=== PATIENT | female | born 1985 | race Hispanic/Latino ===

== ENCOUNTER 2022-11-11 23:14 | Emergency (ER) | payer MEDICAID, OTHER ==
[~2022-11-11] VITALS: Ht 157.5 cm; Wt 88.5 kg
[2022-11-11 23:40] LABS: BILIRUBIN,URINE NEGATIVE (NEGATIVE); COLOR,URINE LIGHT-YELLOW (YELLOW); GLUCOSE, URINE (UA) NEGATIVE (NEGATIVE); KETONES,URINE NEGATIVE (NEGATIVE); LEUKOCYTE ESTERASE ,URINE 75 Leu/uL (NEGATIVE); NITRATE,URINE NEGATIVE (NEGATIVE); PH,URINE 5.5 (5.0-8.0); PROTEIN,URINE NEGATIVE (NEGATIVE); UROBILINOGEN,URINE 0.2 mg/dL (0.2-1.0)
[2022-11-11 23:41] LABS: ADD UA MICROSCOPIC YES; APPEARANCE,URINE SLIGHTLY CLOUDY (CLEAR)
[2022-11-11 23:43] LABS: BACTERIA,URINE RARE /HPF (None Seen); MUCUS,URINE RARE LPF (None Seen); SQUAMOUS EPITHELIAL CELL,UR FEW /HPF (0-2)
[2022-11-12] MEDS ORDERED: CEFTRIAXONE 1G VIAL IM ONE (03:30)
[2022-11-12] MEDS ORDERED: DOXY-469 PO (03:30)
[2022-11-12] MEDS ORDERED: CEFTRIAXONE 1G VIAL IVPB ONE (03:30)
[2022-11-12 03:46] VITALS: BP 122/79; PULSE 92; RESP 18; O2SAT 99
== END 2022-11-12 03:47 | disposition home or self-care (01) ==
LOC: EDH 23:14
DX: N39.0 Urinary tract infection, site not specified (principal); N89.8 Other specified noninflammatory disorders of vagina
CPT/HCPCS: 99284; 87210; 87077; 87088; 87186; 87797 ×2; 81001; 81025; 96372; 87486 ×2; J0696

== ENCOUNTER 2023-04-05 09:03 | Emergency (ER) | payer OTHER ==
[~2023-04-05] VITALS: Ht 157.5 cm; Wt 81.6 kg
[~2023-04-05 09:03] MED LIST: DOXY-469 PO
[2023-04-05] MEDS: LACTATED RINGERS 1000ML 1,000 ML IV ONE (09:26)
[2023-04-05] MEDS: PANTOPRAZOLE 40 MG/VIAL IVP ONE (09:27)
[2023-04-05] MEDS: ONDANSETRON 4MG INJ IVP ONE ×2 (09:27→10:33)
[2023-04-05 09:28] LABS: BASOPHILS # (AUTO) 0.01 K/uL (0.00-0.20); BASOPHILS % (AUTO) 0.1 % (0.0-5.0); EOSINOPHILS # (AUTO) 0.03 K/uL (0.00-0.70); EOSINOPHILS % (AUTO) 0.3 % (0.0-8.0); IMMATURE GRANULOCYTE ABSOLUTE 0.04 K/uL (0-1); LYMPHOCYTES # (AUTO) 1.3 K/uL (1.0-4.8); LYMPHOCYTES % (AUTO) 12.1 % (21.0-51.0); MEAN CORPUSCULAR HGB CONC 32.3 g/dL (32.0-36.0); MEAN CORPUSCULAR VOLUME 83.5 fL (79-99); MONOCYTES # (AUTO) 0.4 K/uL (0.1-1.0); NEUTROPHILS # (AUTO) 8.8 K/uL (1.8-7.7); NEUTROPHILS % (AUTO) 83.1 % (40.0-77.0); PLATELET COUNT (AUTO) 456 K/uL (130-400); RED BLOOD CELL COUNT(AUTO) 5.15 MIL/uL (4.00-5.50); RED CELL DISTRIBUTION WIDTH 15.1 % (11.0-15.5); WHITE BLOOD COUNT (AUTO) 10.6 K/uL (4.8-10.8)
[2023-04-05 09:33] LABS: CREATININE 0.7 mg/dL (0.5-1.5); POTASSIUM 3.5 mmol/L (3.5-5.1)
[2023-04-05 09:37] LABS: ALBUMIN 3.9 g/dL (3.5-5.0); BILIRUBIN,TOTAL 0.7 mg/dL (0.2-1.0); TOTAL PROTEIN, SERUM 8.3 g/dL (6.0-8.3)
[2023-04-05 09:42] LABS: APPEARANCE,URINE CLEAR (CLEAR); BILIRUBIN,URINE NEGATIVE (NEGATIVE); COLOR,URINE YELLOW (YELLOW); GLUCOSE, URINE (UA) NEGATIVE (NEGATIVE); KETONES,URINE NEGATIVE (NEGATIVE); LEUKOCYTE ESTERASE ,URINE NEGATIVE Leu/uL (NEGATIVE); NITRATE,URINE NEGATIVE (NEGATIVE); OCCULT BLOOD,URINE NEGATIVE (NEGATIVE); PROTEIN,URINE NEGATIVE (NEGATIVE); UROBILINOGEN,URINE 0.2 mg/dL (0.2-1.0)
[2023-04-05 09:44] LABS: HCG,QUALITATIVE URINE NEGATIVE (NEGATIVE)
[2023-04-05 09:45] LABS: ADD UA MICROSCOPIC NO
[2023-04-05 09:56] LABS: RAPID GROUP A STREP negative (NEGATIVE)
[2023-04-05 10:06] LABS: COVID19 (SARS ANTIGEN RAPID) PRESUMPTIVE NEGATIVE (NEGATIVE); INFLUENZA TYPE A Negative For Type A (NEGATIVE); INFLUENZA TYPE B Negative For Type B (NEGATIVE)
[2023-04-05] MEDS ORDERED: L AC460C PO (10:23)
[2023-04-05] MEDS ORDERED: ELEC62.5 PO (10:23)
[2023-04-05] MEDS ORDERED: ONDA4TAB10 PO (10:26)
[2023-04-05] MEDS: KETOROLAC 15MG/ML VIAL (15MG/ML) IV ONE (10:41)
[2023-04-05 11:11] VITALS: BP 115/60; PULSE 92; RESP 17; O2SAT 99
== END 2023-04-05 11:07 | disposition home or self-care (01) ==
LOC: EDH 09:03
DX: K52.9 Noninfective gastroenteritis and colitis, unspecified (principal); A08.4 Viral intestinal infection, unspecified
CPT/HCPCS: 99284; 96374; 96375; 96361; 87426; 80053; 83690; 85025; 87880; 87804 ×2; 81003; 81025; 36415; 96376; J7120; J2405 ×2; C9113; J1885

== ENCOUNTER 2024-10-11 08:07 | Emergency (ER) | payer BC, MEDICARE ==
[~2024-10-11] VITALS: Ht 157.5 cm; Wt 95.3 kg
[~2024-10-11 08:07] MED LIST changes: -DOXY-469 PO; +ELEC62.5 PO; +L AC460C PO; +ONDA-243 PO
--- NOTE | 2024-10-11 08:20 | ERN ---
General Chief Complaint: Sore Throat Stated Complaint: SORETHROAT Time Seen by MD: 08:08 Source: patient History of Present Illness Initial Comments Patient is a 38-year-old female coming in complaining of sore throat URI symptoms. She states that she has a body aches for two days. Allergies: Coded Allergies: No Known Allergies (Unverified Allergy, Unknown, 11/11/22) Home Meds Active Scripts Ondansetron (Ondansetron Odt) 4 Mg Tab.rapdis, 4 MG PO Q6HPRN PRN for nausea, #16 TAB 0 Refills Prov:KENNETH OLVERA 04/05/23 Electrolytes/Dextrose (Pedialyte Freezer Pops) 62.5 Ml Solution, 62.5 ML PO hourly, #1 BOX Prov:KENNETH OLVERA 04/05/23 l Acidophil/B Lactis/B Longum (Florajen Digest 15 B Cell Cap) 15 Billion Cell Capsule, 1 EACH PO DAILY for 90 Days, #90 CAP 1 Refill Prov:KENNETH OLVERA 04/05/23 Past Medical History Past Medical History: No Pertinent History Past Surgical History: Other, None Surgical History Other: BBL 05/22 ROS Dictation CONSTITUTIONAL: No chills, no fever, no weakness, no diaphoresis, no malaise. HEAD/FACE: No signs of trauma. EENT: No eye pain, no blurred vision, no tearing, no double vision, no ear pain, no ear discharge, no nose pain, nasal congestion, throat pain, no throat swelling, no mouth pain. RESPIRATORY: No cough, no orthopnea, no SOB, no stridor, no wheezing. CARDIOVASCULAR: No chest pain, no edema, no palpitations, no syncope. GASTROINTESTINAL/ABDOMINAL: No abdominal pain, no constipation, no diarrhea, no nausea, no vomiting. GENITOURINARY: No abnormal discharge, no dysuria, no frequent urination, no hematuria. No complaints of pain in the genitals. MUSCULOSKELETAL: No back pain, no gout, no joint pain, no joint swelling, no muscle pain, no muscle stiffness, no neck pain. INTEGUMENTARY: No change in color, no change in hair/nails, no dryness, no lesion, no lumps, no rash. NEUROLOGICAL/PSYCH: No anxiety, not depressed, no emotional problem, no headache, no numbness, no pre-existing deficit, no history of seizures, no tremors, no weakness. HEMATOLOGIC/LYMPHATIC: Not anemic, no history of blood clots, no apparent bleeding, no bruising, glands not swollen. All Systems Negative, Except as Noted. Physical Exam Physical Exam Dictation VITAL SIGNS: Reviewed. GENERAL APPEARANCE: Alert, oriented x3, no acute distress, obese. HEAD AND FACE: Non-traumatic. EYES: PERRL, pink conjunctivas, eyelid no trauma, anterior chamber clear. EARS: Pinnas intact and no signs of trauma or erythema. Ear canals clear and no discharge. TMs no erythema. NOSE: No discharge, no bleeding. OROPHARYNX: Mouth normal, teeth no caries, tongue pink. Pharynx erythema. Tonsils no exudates, no abscesses noted. Mucous membrane moist. NECK: Supple, non-tender, no thyromegaly, no masses, no JVD, no bruits. BREAST: Deferred. CHEST: No tenderness, no crepitus, no paradoxical movement, no retractions. LUNGS: Clear, well-ventilated, symmetric, no rales, no wheezing, no rhonchi, no stridor, good breath sounds bilaterally. HEART: Regular rate, regular rhythm, no murmur, no gallops. VASCULAR: No peripheral edema. ABDOMEN: Soft, positive bowel sounds, nondistended, no guarding, nontender, no rebound, no masses no hepatomegaly, no splenomegaly, no Collins's sign, no hernias. RECTAL: Deferred. GENITAL: Deferred. NEUROLOGICAL: Normal speech, gross motor function intact, gross sensory function intact. MUSCULOSKELETAL: Neck nontender, full range of motion, back nontender, full range of motion. EXTREMITIES: Nontender, full range of motion. SKIN: Color pink, dry, no turgor, no rash, no lacerations, no abrasions, no contusions. LYMPHATICS: Deferred. Results Laboratory and Microbiology Lab and Micro Result Laboratory Tests Test 10/11/24 08:12 10/11/24 09:14 Influenza Type A Antigen Negative For Type A Influenza Type B Antigen Negative For Type B SARS-CoV-2, RNA, NAAT POSITIVE SARS CoV-2 Group A Streptococcus Rapid negative (NEGATIVE) White Blood Count 10.9 K/uL (4.8-10.8) H Red Blood Count 4.72 MIL/uL (4.00-5.50) Hemoglobin 13.0 g/dL (12.0-16.0) Hematocrit 39.3 % (36-48) Mean Corpuscular Volume 83.3 fL (79-99) Mean Corpuscular Hemoglobin 27.5 pg (27.0-33.0) Mean Corpuscular Hemoglobin Concent 33.1 g/dL (32.0-36.0) Red Cell Distribution Width 15.9 % (11.0-15.5) H Platelet Count 510 K/uL (130-400) H Mean Platelet Volume 9.4 fL (7.5-10.5) Immature Granulocyte % (Auto) 0.4 % (0-1) Neutrophils (%) (Auto) 83.5 % (40.0-77.0) H Lymphocytes (%) (Auto) 10.3 % (21.0-51.0) L Monocytes (%) (Auto) 5.1 % (3.0-13.0) Eosinophils (%) (Auto) 0.4 % (0.0-8.0) Basophils (%) (Auto) 0.3 % (0.0-5.0) Neutrophils # (Auto) 9.1 K/uL (1.8-7.7) H Lymphocytes # (Auto) 1.1 K/uL (1.0-4.8) Monocytes # (Auto) 0.6 K/uL (0.1-1.0) Eosinophils # (Auto) 0.04 K/uL (0.00-0.70) Basophils # (Auto) 0.03 K/uL (0.00-0.20) Absolute Immature Granulocyte (auto 0.04 K/uL (0-1) Nucleated Red Blood Cells 0.0 % (0.0-0.19) Sodium Level 140 mmol/L (136-145) Potassium Level 3.9 mmol/L (3.5-5.1) Chloride Level 101 mmol/L (101-111) Carbon Dioxide Level 31 mmol/L (21-32) Blood Urea Nitrogen 9 mg/dL (7-18) Creatinine 0.7 mg/dL (0.5-1.0) Glomerular Filtration Rate Calc 115 mL/min (>90) Random Glucose 91 mg/dL (70-105) Lactic Acid Level 2.0 mmol/L (0.8-2.5) Total Calcium 9.0 mg/dL (8.5-10.1) Labs Reviewed?: Yes MDM MDM: Differential diagnosis: COVID,INFLUENZA, STREP Rationale: Tests considered and ordered secondary to shared decision making include: Previous outside records reviewed: Old ER visits. Risk of complication and/or morbidity or mortality of patient management: None Medications-Per medication reconciliation Need for hospitalization: Patient does not meet criteria for hospitalization. Need for emergency major/minor surgery: No PATIENT IS A 38-YEAR-OLD FEMALE COMING IN COMPLAINING OF URI SYMPTOMS. PER PATIENT SHE HAS BEEN HAVING THESE SYMPTOMS FOR A COUPLE OF DAYS. URI SYMPTOMS INCLUDE COUGH NASAL CONGESTION SORE THROAT. LABORATORY WORKUP POSITIVE FOR COVID-19. PATIENT WILL BE DISCHARGED IN STABLE CONDITION AFTER SHE WAS HYDRATED VITAL SIGNS STABILIZED. ED Course Orders Procedure Category Date Status Time Covid Rna Naat LAB 10/11/24 Complete 08:14 Influenza Type A & B, LAB 10/11/24 Complete Rapid 08:14 Rapid (Group A Strep) LAB 10/11/24 Complete 08:14 Acetaminophen-Codeine PHA 10/11/24 Complete Elixer (Tylenol-Co 08:17 Ibuprofen 600 Mg PHA 10/11/24 Complete Tablet (Motrin) 09:30 Cbc With Differential LAB 10/11/24 Complete 09:09 Basic Metabolic Panel LAB 10/11/24 Complete 09:09 Lactic Acid LAB 10/11/24 Complete 09:09 Blood Cult CLARA 10/11/24 In Process 09:09 0.9%Nacl 1000ml (Ns PHA 10/11/24 Complete 1000ml) 09:30 Ceftriaxone 1g Vial PHA 10/11/24 Complete (Rocephine 1g Inj) 09:30 Ibuprofen 600 Mg PHA 10/11/24 Complete Tablet (Motrin) 09:14 0.9%Nacl 1000ml (Ns PHA 10/11/24 Complete 1000ml) 09:14 Ceftriaxone 1g Vial PHA 10/11/24 Complete (Rocephine 1g Inj) 09:15 0.9%Nacl 1000ml (Ns PHA 10/11/24 Complete 1000ml) 10:00 Current Medications Medications (Trade) Dose Ordered Sig/Efraín Route PRN Reason Start Time Stop Time Status Last Admin Dose Admin Acetaminophen/ Codeine Phosphate (TYLenol-coDEINE (120/12MG 5ML) ELIXIR) 10 ml ONCE STAT PO 10/11/24 08:17 10/11/24 08:21 DC 10/11/24 08:57 Ceftriaxone Sodium 1 ml @ As Directed STK-MED ONCE .ROUTE 10/11/24 09:15 10/11/24 09:15 DC Ceftriaxone Sodium (ROCEphine 1G INJ) 1 gm ONCE ONCE IVPB 10/11/24 09:30 10/11/24 09:31 DC 10/11/24 09:18 Ibuprofen (moTRIN) 600 mg ONCE ONCE PO 10/11/24 09:30 10/11/24 09:31 DC 10/11/24 09:19 Ibuprofen (moTRIN) 600 mg STK-MED ONCE .ROUTE 10/11/24 09:14 10/11/24 09:14 DC Sodium Chloride 1,000 ml @ 0 mls/hr ONCE ONCE IV 10/11/24 09:30 10/11/24 09:31 DC 10/11/24 09:18 Sodium Chloride 1,000 ml @ 0 mls/hr ONCE ONCE IV 10/11/24 10:00 10/11/24 10:01 DC Sodium Chloride 1,000 ml @ As Directed STK-MED ONCE IV 10/11/24 09:14 10/11/24 09:14 DC Vital Signs Date Time Temp Pulse Resp B/P (MAP) Pulse Ox O2 Delivery O2 Flow Rate FiO2 10/11/24 09:19 100.9 10/11/24 09:02 100.9 110 20 110/70 97 Room Air* 0 21 10/11/24 08:08 98.6 118 18 137/64 98 Room Air DX & DISP Disposition: Discharge Departure Impression: Primary Impression: COVID-19 Condition: Stable Scripts Loratadine (Loratadine) 10 Mg Tablet 1 TAB PO DAILY for allergy symptoms for 30 Days, #30 TAB 0 Refills Prov: IRVING AUSTIN MD 10/11/24 Fluticasone Propionate (Flonase Nasal [place]) 50 Mcg/Actuation [place] 2 SPRAY NS DAILY, #16 GM 0 Refills Prov: IRVING AUSTIN MD 10/11/24 Additional Instructions: FOLLOW-UP WITH PRIMARY CARE PROVIDER IN 1 TO 2 DAYS. TAKE MEDICATIONS DIRECTED HERE IN THE EMERGENCY ROOM. OKAY TO CONTINUE HOME MEDICATIONS UNLESS OTHERWISE DISCUSSED DURING YOUR VISIT IN THE EMERGENCY ROOM TODAY. RETURN TO YOUR NEAREST EMERGENCY ROOM IF SYMPTOMS WORSEN OR IF THERE IS NO IMPROVEMENT. CALL 911 IF YOU NEED IMMEDIATE ASSISTANCE. TAKE TYLENOL [id number] NEEDED AND IF NO CONTRAINDICATIONS ARE PRESENT. INCREASE ORAL HYDRATION. A WOUND CULTURE OR URINE CULTURE WAS ORDERED HERE IN THE EMERGENCY ROOM DEPARTMENT PLEASE FOLLOW-UP WITH PRIMARY CARE PROVIDER AND ADVISE THEM TO GET REPORTS FROM OUR FACILITY. IF YOU HAD ANY LU WRAP/SPLINTS THAT WERE APPLIED HERE, PLEASE DO NOT REMOVE THEM UNTIL YOU SEE YOUR PRIMARY CARE OR SPECIALTY. REFERRALS: Referrals: SELF,REFERRAL (PCP) ANDRA SMITH MD Time of Disposition: 10:08 IRVING AUSTIN MD Oct 11, 2024 08:20
[2024-10-11] MEDS: acetaMINOPHEN/coDEINE 120/12MG 5ML PO STA (08:57)
[2024-10-11 09:12] LABS: RAPID GROUP A STREP negative (NEGATIVE)
[2024-10-11] MEDS: 0.9%NACL 1000ML 1,000 ML IV ONE ×2 (09:18→09:25)
[2024-10-11 09:19] VITALS: TEMP 101
[2024-10-11 09:22] LABS: INFLUENZA TYPE A Negative For Type A (NEGATIVE); INFLUENZA TYPE B Negative For Type B (NEGATIVE)
[2024-10-11] MEDS: cefTRIAXone 1G VIAL 1 GM ONE (09:26)
[2024-10-11 09:30] LABS: IMMATURE GRANULOCYTE ABSOLUTE 0.04 K/uL (0-1); NUCLEATED RED BLOOD CELLS 0.0 % (0.0-0.19); PLATELET COUNT (AUTO) 510 K/uL (130-400); RED BLOOD CELL COUNT(AUTO) 4.72 MIL/uL (4.00-5.50); RED CELL DISTRIBUTION WIDTH 15.9 % (11.0-15.5); WHITE BLOOD COUNT (AUTO) 10.9 K/uL (4.8-10.8)
[2024-10-11 09:39] LABS: CREATININE 0.7 mg/dL (0.5-1.0); GLOMERULAR FILTR. RATE CALC 115.0 mL/min (>90); GLUCOSE,RANDOM 91.0 mg/dL (70-105); SODIUM SERUM 140.0 mmol/L (136-145); UREA NITROGEN, BLOOD 9.0 mg/dL (7-18)
[2024-10-11 09:55] LABS: SARS-CoV-2, RNA, NAAT POSITIVE SARS CoV-2 (NEGATIVE)
[2024-10-11] MEDS ORDERED: 0.9%NACL 1000ML 1,000 ML IV ONE (10:00)
[2024-10-11] MEDS ORDERED: FLUT16H NS (10:09)
[2024-10-11] MEDS ORDERED: LORA10TA7 PO (10:09)
[2024-10-11 10:26] VITALS: BP 112/68; PULSE 89; RESP 16; TEMP 98.9; O2SAT 99
== END 2024-10-11 10:35 | disposition home or self-care (01) ==
LOC: EDH 08:07
DX: U07.1 COVID-19 (principal); Z79.899 Other long term (current) drug therapy
CPT/HCPCS: 99284; 96374; 87635; 80048; 85025; 87040 ×2; 87086; 87186; 87880; 87804 ×2; 83605; 36415; J7030; J0696